=== PATIENT | female | born 1990 ===

== ENCOUNTER 2021-02-22 03:17 | Inpatient (IN) | payer BC ==
[~2021-02-22] VITALS: Ht 152.4 cm; Wt 69.1 kg
[2021-02-22] VITALS (53 sets, daily range): BP systolic 79–156; BP diastolic 46–89; PULSE 71–144; TEMP 98.2–98.7
--- NOTE | 2021-02-22 03:30 | NUR ---
G1 at 38.6 weeks gestation to LDR1 with c/o SROM at 0200. EFM explained and applied. FHR 140 bpm and reactive. CTX q4-5 minutes, patient uncomfortable with them. SVE 4/80/-2 with clear fluid noted, amniotrace positive. Plan of care reviewed with patient and spouse.
[2021-02-22] MEDS ORDERED: PRENATAL TABLET PO (03:41)
[2021-02-22] MEDS ORDERED: NATURAL IRON65 MG (03:41)
[2021-02-22 04:32] LABS: BASO % 0.4 % (0.0-2.0); EOS # 0.1 (0.0-0.7); EOS % 1.7 % (0-4.0); GRAN # 5.6 (1.4-6.5); GRAN % 67.9 % (42.2-75.2); HEMOGLOBIN 12.8 g/dl (12.5-16.0); LYMPH # 1.6 (1.2-3.4); LYMPH % 19.4 % (20.0-51.0); MEAN CELL VOLUME 88 fl (80.0-100.0); MEAN CORPUSCULAR HEMOGLOBIN 30 pg (27.0-31.0); MEAN CORPUSCULAR HGB CONC 34 g/dl (33.0-37.0); MEAN PLATELET VOLUME 11.3 fl (7.4-10.4); MONO # 0.8 (0.1-0.6); MONO % 9.3 % (1.7-9.3); PLATELET COUNT 186 K/mm3 (130-400); RED BLOOD COUNT 4.33 M/mm3 (4.10-5.30); REDCELL DISTRIBUTION WIDTH-CV 15.9 % (11.5-14.5)
--- NOTE | 2021-02-22 07:12 | NUR ---
RN AT BEDSIDE. DIFFCIULTY TRACING FHR DUE TO MATERNAL POSITION. MATERNAL HEART RATE TRACING. MONITOR READJUSTED AFTER EPIDURAL PLACEMENT.
--- NOTE | 2021-02-22 07:15 | NUR ---
RN IN ROOM AUDIBLE VARIABLE DECELERATION.
--- NOTE | 2021-02-22 14:24 | NUR ---
PT PUSHING. DIFFICULTY TRACING FHR DUE TO MATERNAL POSITION.
--- NOTE | 2021-02-22 15:51 | NUR ---
[address] Mcnair. See physician notification. 1128 Pitocin started per protocol. Rn at bedside. Plan of care reviewed. 1135 RN begins to push with patient. 1210 Intermittent late/variable decels. Patient wedged left. Patient begins to push with contractions RN at bedside. 1232 Goodpasture at bedside to evaluate patient. 1251 Spontaneous vaginal delivery of viable female . to mother's chest stimulated by nursey RN. Pitocin paused. 1253 Cord clamped x2. Cut by FOB. Care of taken over by Tobi. Straight cathed at this time by provider. 1255 2nd degree tear repaired by Dr. Mcnair. Moderate amt of bleeding noted. Pulse ox applied. 1303 Manual extraction of placenta by Dr. Mcnair. Moderate free flow noted. LR bolus infusing. Pitocin resumed at 333ml/hr per protocol. [address] Mcnair. 1308 Hemabate and Fenatyl given. See EMAR. [address] Mcnair. 1323 Cytotec 1000mg rectally by Dr. Mcnair. See EMAR. 1330 Fundus firm/midline. Bleeding minimal. [place] sized clot expressed. Pericare provided. Pads changed. Plan of care and safety precautions reviewed. See doctor dictation/anesthesia record/nurses notes.
[2021-02-22 17:09] LABS: HEMOGLOBIN 9.9 g/dl (12.5-16.0)
[2021-02-23 01:00] VITALS: BP 113/59; PULSE 106; TEMP 98.7
[2021-02-23 07:00] VITALS: BP 95/56; PULSE 93; TEMP 97.8
[2021-02-23 08:05] LABS: BASO % 0.3 % (0.0-2.0); EOS # 0.1 (0.0-0.7); EOS % 0.9 % (0-4.0); GRAN % 77.6 % (42.2-75.2); LYMPH # 1.7 (1.2-3.4); LYMPH % 13.4 % (20.0-51.0); MEAN CELL VOLUME 90 fl (80.0-100.0); MEAN CORPUSCULAR HGB CONC 33 g/dl (33.0-37.0); MEAN PLATELET VOLUME 11.7 fl (7.4-10.4); MONO # 0.9 (0.1-0.6); MONO % 7.1 % (1.7-9.3); PLATELET COUNT 151 K/mm3 (130-400); RED BLOOD COUNT 2.49 M/mm3 (4.10-5.30); REDCELL DISTRIBUTION WIDTH-CV 16.4 % (11.5-14.5)
[2021-02-23 08:14] LABS: HEMATOCRIT 22.5 % (37.0-47.0); HEMOGLOBIN 7.5 g/dl (12.5-16.0); MEAN CORPUSCULAR HEMOGLOBIN 30 pg (27.0-31.0)
[2021-02-23 12:30] VITALS: BP 107/62; PULSE 99; TEMP 97.7
--- NOTE | 2021-02-23 14:42 | NUR ---
Initial visit; Parents thanked [employer] for offering congratulations and God's blessings for the of their daughter. [employer] thanked them for choosing our hospital.
[2021-02-23 16:10] VITALS: BP 101/59; PULSE 100; TEMP 98.2
--- NOTE | 2021-02-23 16:11 | NUR ---
PATIENT EDUCATED ON BREAST PUMP AND HOW TO USE. QUESTIONS INVITED AND ANSWERED.
[2021-02-23 19:45] VITALS: BP 101/58; PULSE 106; TEMP 97.8
[2021-02-23 23:15] VITALS: BP 109/61; PULSE 102; TEMP 98
[2021-02-24] VITALS (13 sets, daily range): BP systolic 81–131; BP diastolic 56–85; PULSE 104–130; TEMP 97.7–100.2
[2021-02-24 11:11] LABS: MEAN CELL VOLUME 91 fl (80.0-100.0); MEAN CORPUSCULAR HGB CONC 34 g/dl (33.0-37.0); MEAN PLATELET VOLUME 10.2 fl (7.4-10.4); PLATELET COUNT 173 K/mm3 (130-400); RED BLOOD COUNT 2.01 M/mm3 (4.10-5.30); REDCELL DISTRIBUTION WIDTH-CV 16.8 % (11.5-14.5)
[2021-02-24 11:18] LABS: HEMATOCRIT 18.3 % (37.0-47.0); HEMOGLOBIN 6.2 g/dl (12.5-16.0); MEAN CORPUSCULAR HEMOGLOBIN 31 pg (27.0-31.0)
[2021-02-24 19:04] LABS: HEMATOCRIT 26.1 % (37.0-47.0); HEMOGLOBIN 8.7 g/dl (12.5-16.0)
--- NOTE | 2021-02-24 19:45 | NUR ---
dISCHARGE INSTRUCTIONS GIVEN AND QUESTIONS ANSWERED. 2044: PT AMBULATORY OFF UNIT WITH THIS RN AND HOME WITH SPOUSE.
== END 2021-02-24 20:45 | disposition home or self-care (01) | DRG 806 ==
LOC: LDRO 03:17 → LDR 03:50 → OB 16:30
PROVIDERS: Obstetrics & Gynecology; ADMIT Student in an Organized Health Care Education/Training Program
PROC: 10E0XZZ Delivery of Products of Conception, External Approach (ICD-10-PCS; principal; 2021-02-23)
PROC: 0KQM0ZZ Repair Perineum Muscle, Open Approach (ICD-10-PCS; 2021-02-23)
PROC: 10D17Z9 Manual Extraction of Products of Conception, Retained, Via Natural or Artificial Opening (ICD-10-PCS; 2021-02-23)
DX: O99.02 Anemia complicating childbirth (principal); O44.43 Low lying placenta NOS or without hemorrhage, third trimester; Z37.0 Single live birth; D62 Acute posthemorrhagic anemia; O72.1 Other immediate postpartum hemorrhage; O36.5930 Maternal care for other known or suspected poor fetal growth, third trimester, not applicable or unspecified; O70.1 Second degree perineal laceration during delivery; Z3A.38 38 weeks gestation of pregnancy; O76 Abnormality in fetal heart rate and rhythm complicating labor and delivery
CPT/HCPCS: J0690; J1940; J2210; J2590; J3010; J7050; J7120; P9016